=== PATIENT | male | born 1955 | race Asian ===

== ENCOUNTER → 2023-06-24 | Outpatient (CLI) | payer OTHER ==
[~2023-06-24] MED LIST: ACTOS30 MG PO; AMLODIPINE BESYL5 MG PO; CARVEDILOL25 M9 PO; CEFD300 PO; Dyazide 37.5/251 EA PO; FERROUS SULFAT325 M3 PO; GLUCOPHAGE1000 M1 PO; OMEP20ER PO; Pyridium100 MG PO; ROSUVASTATIN CAL5 MG PO; TAMSULOSIN HCL0.4 M1 PO; ZESTRIL40 M1 PO
[2023-06-24 12:13] LABS: Creatinine Urine 39.6 mg/dL (27.00-270.00); Protein, Urine Quantitative 5.9 mg/dL (0.0-11.9)
[2023-06-24 12:15] LABS: Microalbumin, Urine Quant. 6.11 mg/L (0.000-20.000)
== END | disposition home or self-care (01) ==
LOC: LAB SHORT 09:41 → LAB 09:41 → LAB FUT 06-21 09:15
PROVIDERS: Internal Medicine Nephrology
DX: N18.2 Chronic kidney disease, stage 2 (mild) (principal); D63.1 Anemia in chronic kidney disease; N25.81 Secondary hyperparathyroidism of renal origin; E55.9 Vitamin D deficiency, unspecified; E78.00 Pure hypercholesterolemia, unspecified; R76.9 Abnormal immunological finding in serum, unspecified; R94.5 Abnormal results of liver function studies; R94.6 Abnormal results of thyroid function studies
CPT/HCPCS: 81050; 82043; 82570; 84156